=== PATIENT | female | born 1985 | race Caucasian/White ===

== ENCOUNTER → 2021-05-11 15:39 | Outpatient (CLI) | payer MEDICAID, SELFPAY ==
[2021-05-11 16:56] LABS: Absolute Lymphocyte Count 1.91 X10^3/uL (0.83-4.51); Absolute Neutrophil Count 6.1 X10^3/uL (2.0-7.7); Basophil# 0.02 X10^3/uL; Basophil% 0.2 % (0-1); Eosinophil# 0.13 X10^3/uL; Eosinophils% 1.5 % (0-5); Hematocrit 45.1 % (37-47); Hemoglobin 14.4 g/dL (12.0-15.0); Lymphocyte # 1.91 X10^3/ul (0.83-4.51); Lymphocyte % 21.4 % (19-41); Mean Corp Hgb Conc 31.9 g/dL (32-36); Mean Corpuscular Hgb 29.4 pg (27.0-32.0); Mean Corpuscular Volume 92.2 fL (81-99); Mean Platelet Vol. 11.6 fl (6.2-12.0); Monocyte# 0.79 X10^3/uL; Monocyte% 8.8 % (0-10); NRBC Flagged by Analyzer 0 % (0-5); Neutrophil # 6.06 X10^3/uL (2.7-7.7); Neutrophil % 67.8 % (47-70); Platelet Count 295 K/mm3 (150-450); RBC Distribution Width SD 44.2 fl (35.1-43.9); Red Blood Count 4.89 M/mm3 (4.2-5.4); White Blood Count 8.9 K/mm3 (4.4-11.0)
[2021-05-11 17:04] LABS: Erythrocyte Sedimentation Rate 14 mm/hr (0-30)
[2021-05-11 17:24] LABS: Vitamin B12 348 pg/mL (211-911)
[2021-05-11 17:36] LABS: Amylase 96 U/L (25-115); CRP < 2.90 mg/L (0.0-3.0); LDH 152 U/L (84-246); Lipase 110 U/L (73-393); T4 Free Direct 0.95 ng/dL (0.76-1.46); Thyroid Stim Hormone (TSH) 0.69 uIU/mL (0.358-3.74)
[2021-05-14 16:09] LABS: Endomysial Antibody IgA Negative (Negative)
[2021-05-14 19:34] LABS: Immunoglobulin A 317 mg/dL (87-352); t-Transglutaminase IgA <2 U/mL (0-3)
[2021-05-15 13:08] LABS: Vitamin D 1,25-Dihydroxy 74.6 pg/mL (19.9-79.3)
[2021-05-15 19:58] LABS: ANTINUCLEAR ANTIBODIES DIRECT Negative (Negative)
== END ==
PROVIDERS: Referring Provider Internal Medicine Gastroenterology; Visit Provider Internal Medicine Gastroenterology
DX: R10.9 Unspecified abdominal pain (principal)
CPT/HCPCS: 36415; 82150; 82533; 82607; 82652; 82784; 83516; 83615; 83690; 84439; 84443; 84481; 85025; 85652; 86038; 86140; 86225; 86235; 86255

== ENCOUNTER 2021-05-24 09:42 | Day surgery (SDC) | payer MEDICAID, SELFPAY ==
[2021-05-24] VITALS (7 sets, daily range): BP systolic 111–134; BP diastolic 77–109; PULSE 61–95; RESP 16; TEMP 36.3–37; O2SAT 100; BMI 14.0
[2021-05-24] MEDS: Lactated Ringers 1,000 ML 100 ML IV (10:11)
--- NOTE | 2021-05-24 10:45 | EGD_PTH ---
PATIENT: SUYAPA ZHU LOC: [facility] U#:[id number] AGE/SX: 35/F ROOM: RE05/24/[address]: Dr. Hank Caraballo DO : 1985 BED: DIS: 05/24/2021 SPEC #: [id number] RECD: 05/24/21 15:13 STATUS: GALO RENathan #: [id number] MAGGIE: 05/24/21 10:[address]: Hank Caraballo DEPT: SURGICAL PATHOLOGY RECD BY: Analia Larson ENTERED: 05/25/21 09:01 SP TYPE: EGD BIOPSY OTHR DR: Majo Primary Care Phys Tissues: A - Duodenum, NOS B - Esophagus, NOS C - Ileum, NOS D - COLON BIOPSY Procedures: Special Stain Group II Surgery Specimen Level IV Alcian Blue/PAS (control) HEADER OPERATION: Colonoscopy, EGD ([facility] [place]) PRE-OP DIAGNOSIS: Abdominal pain TISSUE SUBMITTED: A ? Duodenum biopsy, B ? Distal esophagus biopsy, C ? Terminal ileum biopsy, D ? Random colon biopsies MICROSCOPIC DIAGNOSIS A. Duodenum, biopsy: No pathologic change. B. Distal esophagus, biopsy: Gastroesophageal junctional mucosa with mild chronic inflammation. Changes of reflux. No evidence of goblet cell metaplasia. See comment. C. Terminal ileum, biopsy: Mild acute inflammation. See comment. D. Colon, random biopsy: Mild melanosis coli. AM:macrina 05/28/2021 COMMENT B. Alcian blue/PAS stain with matched control is used in the evaluation of the specimen. C. Occasional neutrophils are seen in glandular epithelium. Crypt abscesses, granulomas, fissuring ulcers or transmural aggregates are not identified. Clinical correlation is suggested. MICROSCOPIC DESCRIPTION Slides are reviewed. GROSS DESCRIPTION A - Received in fixative is one container labeled with the patient's name and designated biopsy duodenum. The specimen consists of multiple irregular fragments of light card soft tissue that in aggregate measure 0.6 x 0.5 x 0.1 cm. The specimen is totally submitted in one cassette. B - Received in fixative is one container labeled with the patient's name and designated biopsy distal esophagus. The specimen consists of multiple irregular fragments of light card soft tissue that in aggregate measure 0.5 x 0.3 x 0.1 cm. The specimen is totally submitted in one cassette. C - Received in fixative is one container labeled with the patient's name and designated biopsy terminal ileum. The specimen consists of multiple irregular fragments of light card soft tissue that in aggregate measure 1 x 0.5 x 0.1 cm. The specimen is totally submitted in one cassette. D - Received in fixative is one container labeled with the patient's name and designated random colon biopsy. The specimen consists of multiple irregular fragments of light card soft tissue that in aggregate measure 2 x 0.7 x 0.1 cm. The specimen is totally submitted in one cassette. / SJ:rg 05/25/21 TC:3 CPT: 08092 x4, 66983
--- NOTE | 2021-05-24 12:14 | HP.PCM_ITS ---
History and Physical Date of Admission: 05/24/21 etails: Pain in Arian ZHU, is a 35 F who presents to the office today for c/o of bloating with decreased appetite going on for the last year with weight loss of 10-20lbs. When she eats she gets a lot of nausea or when intraabdominal pressure increases. 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 It actually was a polyp that was seen on ultrasound in her gallbladder. She was told that it was too small to remove. She gets a lot of pain after eating. She does have some intermittent loose stools. Her concern is also that her not eating is significantly affecting her weight. Her BMI is down to 14.2. She is not on any calcium or vitamin D supplements. She is not on any B12 supplements. She does not take a multivitamin. She says she eats but then its abdominal pain. She does suffer from iron deficiency anemia but no other past medical history. She denies any history of anorexia or bulimia. She has 2 children that are in good health. She has not had any surgeries. Prescribed a narcotic for pain but does not take it due to not being able to drive when taking it. Urination and bowel movements have increased in frequency. ROS Const Constitutional: Positive for weight change ENT ENT: Positive for nasal congestion Gastro GI: Positive for abdominal pain, bloating, change in bowel habits and nausea/dyspepsia Musc Musculoskeletal: Positive for abnormal gait and back pain Neuro Neurology: Positive for abnormal gait Endo Endocrine: Positive for increased urine leakage and weight change Exam Const General: cooperative and comfortable Nutritional Appearance: average body habitus and well nourished [facility] Head: normal to inspection Ears: hearing grossly normal bilaterally Nose: external nose normal Face and sinus: normal facial exam Mouth: oral mucosae normal Throat: posterior oropharynx normal Eyes General: appearance normal, both eyes and all related structures Neck Neck: normal visual inspection Chest Chest palpation & inspection: normal inspection of the chest and normal palpation of entire chest wall Resp Effort & Inspection: normal respiratory effort Auscultation: Bilateral: Clear to Auscultation Cardio Palpation: normal PMI Rate: regular rate Rhythm: regular rhythm GI Inspection: normal to inspection Auscultation: normal bowel sounds Percussion: normal to percussion Palpation: no hepatosplenomegaly Skin General: no rashes or lesions noted Neuro General: patient alert Extrem General: normal to inspection Psych Affect: normal affect Quality Reporting Tobacco Screening ([facility]) Smoking Status: Current every day smoker Assessment and Plan Assessment and Plan (1) Abdominal pain: Status: Acute Orders: Orders: Vitamin B12 Today CRP Today Free T3 Today LDH Today T4 Free Direct Today Thyroid Stim Hormone (TSH) Today CBC W/Diff, Automated Today Erythrocyte Sed Rate Today Vitamin D 1,25-Dihydroxy Today Celiac Disease Profile Today Abdomen/Pelvis WITH Contrast Today CORTISOL SERUM Today Amylase Today Lipase Today RONI w/ Reflex Mult Confirm Today Colonoscopy 05/24/21 EGD 05/24/21 Plan - Dr. Mckinney Friend, DO: We will evaluate her upper GI tract and lower GI tract for any ulcers, inflammation, scarring. We will also evaluate her biochemically with an amylase, lipase, cortisol due to the fact that she has low blood pressure, free T3, free T4, TSH, B12, CRP, celiac profile, RONI. (2) Weight loss: Status: Acute Plan - Dr. Mckinney Friend, DO: She is severely cachectic with a BMI of 14.2. She should have a bone scan to to assess her bone density. With her weight loss and iron of his anemia she should have an upper endoscopy to rule out celiac disease. Hopefully we can have some answers for her. Plan Details Other Medications: New: bisacodyl 20 mg (4 x 5 mg) PO ONCE 4 tabs 0RF polyethylene glycol 3350 (Miralax) 17 grams PO Q10M 238 grams 0RF
--- NOTE | 2021-05-24 13:02 | OP.EGD_ITS ---
Patient Name: Vu Gonzales Procedure Date: 05/24/2021 12:14 PM Date of : 1985 Age: 35 Procedure: Upper GI endoscopy Indications: Epigastric abdominal pain Providers: Hank Caraballo DO Medicines: Propofol per Anesthesia Patient Profile: This is a 35 year old female. Refer to note in patient chart for documentation of history and physical. Patient has symptoms. Complications: No immediate complications. Procedure: Pre-Anesthesia Assessment: - Prior to the procedure, a History and Physical was performed, and patient medications and allergies were reviewed. The patient is competent. The risks and benefits of the procedure and the sedation options and risks were discussed with the patient. All questions were answered and informed consent was obtained. Patient identification and proposed procedure were verified by the physician in the pre-procedure area. Mental Status Examination: alert and oriented. Airway Examination: normal oropharyngeal airway and neck mobility. Respiratory Examination: clear to auscultation. CV Examination: normal. Prophylactic Antibiotics: The patient does not require prophylactic antibiotics. Prior Anticoagulants: The patient has taken no previous anticoagulant or antiplatelet agents. ASA Grade Assessment: II - A patient with mild systemic disease. After reviewing the risks and benefits, the patient was deemed in satisfactory condition to undergo the procedure. The anesthesia plan was to use moderate sedation / analgesia (conscious sedation). Immediately prior to administration of medications, the patient was re-assessed for adequacy to receive sedatives. The heart rate, respiratory rate, oxygen saturations, blood pressure, adequacy of pulmonary ventilation, and response to care were monitored throughout the procedure. The physical status of the patient was re-assessed after the procedure. After obtaining informed consent, the endoscope was passed under direct vision. Throughout the procedure, the patient's blood pressure, pulse, and oxygen saturations were monitored continuously. The Endoscope was introduced through the mouth, and advanced to the second part of duodenum. The upper GI endoscopy was accomplished without difficulty. The patient tolerated the procedure well. Moderate Sedation: Moderate (conscious) sedation was administered by the endoscopy nurse and supervised by the endoscopist. The patient's oxygen saturation, heart rate, blood pressure and response to care were monitored. Total physician intraservice time was 15 minutes. Scope In: 12:31:56 PM Scope Out: 12:34:59 PM Total Procedure Duration Time 0 hours 3 minutes 3 seconds Findings: LA Grade A (one or more mucosal breaks less than 5 mm, not extending between tops of 2 mucosal folds) esophagitis with no bleeding was found 34 to 35 cm from the incisors. Biopsies were taken with a cold forceps for histology. Verification of patient identification for the specimen was done. Estimated blood loss was minimal. A small hiatal hernia was present. No other significant abnormalities were identified in a careful examination of the stomach. Patchy mildly erythematous mucosa without active bleeding and with no stigmata of bleeding was found in the second portion of the duodenum. Biopsies were taken with a cold forceps for histology. Estimated blood loss was minimal. Impression: - LA Grade A reflux esophagitis. Biopsied. - Small hiatal hernia. - Erythematous duodenopathy. Biopsied. Recommendation: - Discharge patient to home. - Resume previous diet. - Continue present medications. - Await pathology results. - Return to my office in 2 weeks. Procedure Code(s): --- Professional --- 20961, Esophagogastroduodenoscopy, flexible, transoral; with biopsy, single or multiple G0500, Moderate sedation services provided by the same physician or other qualified health childcare provider performing a gastrointestinal endoscopic service that sedation supports, requiring the presence of an independent trained observer to assist in the monitoring of the patient's level of consciousness and physiological status; initial 15 minutes of intra-service time; patient age 5 years or older (additional time may be reported with 21566, as appropriate) CPT copyright 2017 [employer]. All rights reserved. The codes documented in this report are preliminary and upon white metal corrosion proofer review may be revised to meet current compliance requirements. Hank Caraballo DO 05/24/2021 1:02:08 PM This report has been signed electronically. Number of Addenda: 1 Note Initiated On: 05/24/2021 12:14 PM Addendum Number: 1 Addendum Date: 04/04/2022 4:41:40 PM MAC was used instead of moderate sedation for this patient. Hank Caraballo DO 04/04/2022 4:41:46 PM This report has been signed electronically.
--- NOTE | 2021-05-24 13:06 | OP.COLON_ITS ---
Patient Name: Vu Gonzales Procedure Date: 05/24/2021 12:36 PM Date of : 1985 Age: 35 Procedure: Colonoscopy Indications: This is the patient's first colonoscopy, Generalized abdominal pain, Chronic diarrhea Providers: Hank Caraballo DO Medicines: Propofol per Anesthesia Patient Profile: This is a 35 year old female. Refer to note in patient chart for documentation of history and physical. Patient has symptoms. Last Colonoscopy: none. The patient's first colonoscopy is today. Complications: No immediate complications. Procedure: Pre-Anesthesia Assessment: - Prior to the procedure, a History and Physical was performed, and patient medications and allergies were reviewed. The patient is competent. The risks and benefits of the procedure and the sedation options and risks were discussed with the patient. All questions were answered and informed consent was obtained. Patient identification and proposed procedure were verified by the physician in the pre-procedure area. Mental Status Examination: alert and oriented. Airway Examination: normal oropharyngeal airway and neck mobility. Respiratory Examination: clear to auscultation. CV Examination: normal. Prophylactic Antibiotics: The patient does not require prophylactic antibiotics. Prior Anticoagulants: The patient has taken no previous anticoagulant or antiplatelet agents. ASA Grade Assessment: II - A patient with mild systemic disease. After reviewing the risks and benefits, the patient was deemed in satisfactory condition to undergo the procedure. The anesthesia plan was to use moderate sedation / analgesia (conscious sedation). Immediately prior to administration of medications, the patient was re-assessed for adequacy to receive sedatives. The heart rate, respiratory rate, oxygen saturations, blood pressure, adequacy of pulmonary ventilation, and response to care were monitored throughout the procedure. The physical status of the patient was re-assessed after the procedure. - Prior to the procedure, a History and Physical was performed, and patient medications and allergies were reviewed. The patient is competent. The risks and benefits of the procedure and the sedation options and risks were discussed with the patient. All questions were answered and informed consent was obtained. Patient identification and proposed procedure were verified by the physician. Mental Status Examination: alert and oriented. Airway Examination: normal oropharyngeal airway and neck mobility. Respiratory Examination: clear to auscultation. CV Examination: normal. Prophylactic Antibiotics: The patient does not require prophylactic antibiotics. Prior Anticoagulants: The patient has taken no previous anticoagulant or antiplatelet agents. ASA Grade Assessment: II - A patient with mild systemic disease. After reviewing the risks and benefits, the patient was deemed in satisfactory condition to undergo the procedure. The anesthesia plan was to use moderate sedation / analgesia (conscious sedation). Immediately prior to administration of medications, the patient was re-assessed for adequacy to receive sedatives. The heart rate, respiratory rate, oxygen saturations, blood pressure, adequacy of pulmonary ventilation, and response to care were monitored throughout the procedure. The physical status of the patient was re-assessed after the procedure. After I obtained informed consent, the scope was passed under direct vision. Throughout the procedure, the patient's blood pressure, pulse, and oxygen saturations were monitored continuously. The colonoscope was introduced through the anus and advanced to the terminal ileum. The colonoscopy was performed without difficulty. The patient tolerated the procedure well. The quality of the bowel preparation was good. Moderate Sedation: Moderate (conscious) sedation was administered by the endoscopy nurse and supervised by the endoscopist. The patient's oxygen saturation, heart rate, blood pressure and response to care were monitored. Total physician intraservice time was 15 minutes. Scope In: 12:40:16 PM Scope Withdrawal Time 0 hours 8 minutes 46 seconds Scope Out: 12:58:06 PM Total Procedure Duration Time 0 hours 17 minutes 50 seconds Findings: The perianal and digital rectal examinations were normal. The colon (entire examined portion) appeared normal. This was biopsied with a cold jumbo forceps for diagnostic purposes. Verification of patient identification for the specimen was done. Estimated blood loss was minimal. The distal ileum contained multiple five mm ulcers. No bleeding was present. Biopsies were taken with a cold forceps for histology. Verification of patient identification for the specimen was done. Estimated blood loss was minimal. Impression: - The entire examined colon is normal. Biopsied. - Multiple ulcers in the distal ileum. Biopsied. Recommendation: - Discharge patient to home. - Resume previous diet. - Continue present medications. - Await pathology results. - Repeat colonoscopy in 1 year for surveillance based on pathology results. - Return to GI office in 2 weeks. Procedure Code(s): --- Professional --- 37054, Colonoscopy, flexible; with biopsy, single or multiple G0500, Moderate sedation services provided by the same physician or other qualified health health care recruiter performing a gastrointestinal endoscopic service that sedation supports, requiring the presence of an independent trained observer to assist in the monitoring of the patient's level of consciousness and physiological status; initial 15 minutes of intra-service time; patient age 5 years or older (additional time may be reported with 46488, as appropriate) CPT copyright 2017 [employer]. All rights reserved. The codes documented in this report are preliminary and upon carder blankets review may be revised to meet current compliance requirements. Hank Caraballo DO 05/24/2021 1:06:20 PM This report has been signed electronically. Number of Addenda: 1 Note Initiated On: 05/24/2021 12:36 PM Addendum Number: 1 Addendum Date: 04/04/2022 4:41:56 PM MAC was used instead of moderate sedation for this patient. Hank Caraballo DO 04/04/2022 4:42:00 PM This report has been signed electronically.
== END 2021-05-24 14:13 | disposition home or self-care (01) ==
LOC: EN 09:43 → AC 09:43
PROVIDERS: Referring Provider Internal Medicine Gastroenterology; Visit Provider Internal Medicine Gastroenterology
PROC: 0DJD8ZZ Inspection of Lower Intestinal Tract, Via Natural or Artificial Opening Endoscopic (ICD-10-PCS; CPT 45378; principal; 2021-05-24 10:40)
DX: K63.3 Ulcer of intestine (principal); K52.9 Noninfective gastroenteritis and colitis, unspecified; K21.00 Gastro-esophageal reflux disease with esophagitis, without bleeding; K44.9 Diaphragmatic hernia without obstruction or gangrene; K63.89 Other specified diseases of intestine; R10.84 Generalized abdominal pain; K82.4 Cholesterolosis of gallbladder; D50.9 Iron deficiency anemia, unspecified; F17.210 Nicotine dependence, cigarettes, uncomplicated; R63.4 Abnormal weight loss; Z68.1 Body mass index [BMI] 19.9 or less, adult; Z20.822 Contact with and (suspected) exposure to COVID-19
CPT/HCPCS: 43239; 45380; 87426; 88305; 88313; J7120; J2405

== ENCOUNTER → 2021-06-08 11:07 | Outpatient (CLI) | payer MEDICAID, SELFPAY ==
[2021-06-08 12:25] LABS: Erythrocyte Sedimentation Rate 15 mm/hr (0-30)
[2021-06-08 12:46] LABS: CRP < 2.90 mg/L (0.0-3.0)
== END ==
PROVIDERS: Visit Provider Internal Medicine Gastroenterology
DX: K52.9 Noninfective gastroenteritis and colitis, unspecified (principal)
CPT/HCPCS: 36415; 85652; 86140

== ENCOUNTER → 2021-07-05 06:51 | Outpatient (CLI) | payer MEDICAID, SELFPAY ==
--- NOTE | 2021-07-05 06:52 | CT_ITS ---
STUDY: CT Abdomen And Pelvis W/ Contrast Injection 07/05/2021 6:04 PM REASON FOR EXAM: Female, 35 years old. ABDOMINAL PAIN weight loss TECHNIQUE: Transaxial images were obtained with oral contrast, and with Oral ; IV Readi-CAT and amp; 100mL Isovue-370 intravenous contrast. Individualized dose optimization techniques were used for this CT. COMPARISON: None. FINDINGS: The visualized lung bases are unremarkable. The visualized portions of the heart are within normal limits. Normal liver. Normal gallbladder and extrahepatic biliary system. Normal spleen. Normal pancreas. Normal bilateral adrenal glands. No acute findings of the right kidney. No acute findings of the left kidney. Normal visualized stomach. Normal small intestine. Stool throughout the colon. There is non-visualization of the appendix. There are no acute findings of the abdominal aorta. Normal inferior vena cava. Subcentimeter mesenteric lymph nodes. The urinary bladder is distended. This can suggest urinary retention. Normal visualized uterus. 2 cysts of the right ovary. These measure 34 mm and 24 mm. There is a dilated ovarian vein. This left vein is 11 mm in size. This is consistent for pelvic venous congestion syndrome. There are varices overlying the left ovarian vein may represent pelvic venous congestion syndrome. There is an umbilical hernia containing fat. Normal osseous structures. IMPRESSION: (NOT LISTED IN ORDER OF SIGNIFICANCE) Two right ovary cysts. ACR White Paper guidelines (Amaya, et. al. JACR 2020;17(2):248-254) suggest no follow-up is necessary. The urinary bladder is distended. This can suggest urinary retention. There is pelvic venous congestion syndrome. Other findings as above. Electronically Signed: Edgar Tian MD at 18:10 EST , Service support , CT/Abdomen/Pelvis WITH Contrast
== END ==
PROVIDERS: Referring Provider Internal Medicine Gastroenterology; Visit Provider Internal Medicine Gastroenterology
DX: R10.9 Unspecified abdominal pain (principal)
CPT/HCPCS: 74177; Q9967